=== PATIENT | female | born 1970 | race Caucasian/White ===

== ENCOUNTER 2019-01-22 12:04 | Inpatient (IN) | payer OTHER ==
[~2019-01-22] VITALS: Ht 162.6 cm; Wt 68.0 kg
[2019-01-22] MEDS ORDERED: KEPPRA1000 MG PO (12:14)
--- NOTE | 2019-01-22 15:16 | NUR ---
PT ARRIVES TO FLOOR ON GOURNEY BUT AMBULATES FROM GOURNEY TO HOSPITAL BED WITH STEADY GAIT AND DENIES DIZZINESS. ROOM AIR SAT 88% SO PT WAS PLACED ON 2LPNC AN DIS NOW SATTING IN MID 90'S. ASSESSMENT COMPLETED AND CALL LIGHT IN REACH. PT PROVIDED WITH MENUE SHE REPORTS NOT HAVING ANYTHING TO EAT IN 3 DAYS. CALL LIGHT AND H20 IN REACH AND PT ON PHONE ORDERING DINNER.
--- NOTE | 2019-01-22 16:35 | NUR ---
Medications reconciled per patient intake interview. Per patient, Keppra is the only medication that she takes
--- NOTE | 2019-01-22 17:53 | NUR ---
PATIENT IN BED WATCHING TV. VITAL SIGNS AND I&O DONE. WARM BLANKETS PROVIDED. PATIENT COMPLAINS ABOUT HEARTBURN. RN NOTIFIED. CALL LIGHT WITHIN REACH. NO OTHER NEEDS AT THIS TIME
--- NOTE | 2019-01-22 18:35 | NUR ---
PT REPORTS 7/10 RIB AN DTORSOE PAIN THAT IS INCREASED TO 9/10 WITH COUGHING. PT HEARD COUGHING INTERMITTANTLY. PT REFUSES PRN PO TYLENOL STATES "I CAN'T HAVE THAT D/T TO MY LIVER CIRHOSIS ANYWAYS AND IT WOULDN'T TOUCH THIS PAIN. DR RODRIGUEZ NOTIFIED OF PT'S S/SX'S.
--- NOTE | 2019-01-22 19:12 | NUR ---
RECEIVED REPORT FROM CHRISTINE MEHTA. pt ALERT AND AWAKE. REQUESTED KEPPRA EARLY THIS IS THE NORMAL TIME SHE TAKES IT. OXY ADMINISTERED BY CHRISTINE MEHTA. CALL LIGHT WITHIN REACH. WHITEBOARD UPDATED.
--- NOTE | 2019-01-22 21:00 | NUR ---
PT CALLED TO USE THE RESTROOM, SHE AMBULATED SBA. SHE IS BACK IN BED AND DENIES FURTHER NEEDS. CALL LIGHT IS CLOSE.
--- NOTE | 2019-01-23 00:19 | NUR ---
pt AWAKE, COUGHING. CALL LIGHT WITHIN REACH.
--- NOTE | 2019-01-23 03:28 | NUR ---
ASSESSMENT DONE. TEMPERATURE HIGH, PRN TYLENOL ADMINISTERED WITH OTHER PRN MEDS (SEE MAR). pt COUGHING. ON 2 L TO MAINTAIN SAT >90. ENCOURAGED TO USE CPT. NO REQUESTS AT THIS TIME. CALL LIGHT WITHIN REACH.
--- NOTE | 2019-01-23 06:40 | NUR ---
VS AND I&O'S ENTERED. PT DENIES NEEDS AT THIS TIME. CALL LIGHT IS WITHIN REACH.
--- NOTE | 2019-01-23 07:32 | NUR ---
pt AWAKE MOST OF NIGHT. NON PRODUCTIVE COUGH. PAIN MEDICATION AND PRN COUGH MEDS GIVEN. VOIDING QS. SBA. IV SL. TOLERATING REGULAR DIET. COARSE LUNG SOUNDS. 2 L O2 TO MAINTAIN SATS. USES CALL LIGHT APPROPRIATELY.
--- NOTE | 2019-01-23 09:29 | NUR ---
PT RESTING IN SEMIFOWLERS POSTION IN BED TALKING ON CELL PHONE AND WATCHING TV. PT REPORTS ELEVATED PAIN LEVEL WITH COUGHING. PT REQUESTED AND RECEIVED PRN COUGH SYRUP AND PRN PO OPIOD. ASSESSMENT COMPLETED AND CALL LIGHT AND H20 IN REACH. NO FURTHER NEEDS/CONCERNS VOICED.
--- NOTE | 2019-01-23 11:41 | NUR ---
NASAL SWAB SPECIMEN OBTAINED AND SENT TO LAB. PT TOLERATED WELL. PT SITTING UP IN BED, RT IN TO APPLY VAPOTHERM AN DPO K+ ADMINISTERED WITH WILIAN AND JEEBEN. CALL LIGHT AND H20 IN REACH. PT WAS EDUCATED ON PROPER TECHNIQUE FOR CLEAN CATCH URINE SAMPLE AND VERBALIZED UNDERSTANDING AND AGREES TO USE CALL LIGHT ONCE ABLE PT PRODUCE URINE SAMPLE. PT DENIES FURTHER NEEDS/CONCERNS.
--- NOTE | 2019-01-23 14:06 | NUR ---
PT SITTING UP IN BED, PT REPORTS 6 TO 8/10 PAIN WITH COUGHING. PRN PO OXYCODONE, TESSELON PEARLS, COUGH SYRUP WITH CODEIN AND COUGH LOZENGE ADMINISTERED. PT DENIES NEED FOR NASAL SPRAY STATES "I ADJUSTED THE NASAL CANULLA AND NOW IT DOESNT FEEL STUFFY AT ALL". ASSESSMENT COMPLETED. CALL LIGHT AND H20 IN REACH. FAMILY AT BEDSIDE NO NEEDS VOICED.
--- NOTE | 2019-01-23 17:34 | NUR ---
Pt reports increased pain with coughing, per pt request prn opiod, cough syrup and cough lozenge was administered. Call light and h20 in reach. Respirations remain even and unlabored on vapotherm per rt. Pt denies sob and recently received breathing tx from RT -See EMAR.
--- NOTE | 2019-01-23 19:10 | NUR ---
SHIFT REPORT RECEIVED FROM [facility] CHRISTINE MEHTA. PT IN BED AWAKE, RR WNL. PT ON VAPOFIRM O2 THERAPY. PT DENIES SOB, COUGHING NOTED. PT REPORTS HEARTBURN, WILL GIVE PRN MAALOX WITH EVENING MEDS. FRESH WATER AT BEDSIDE. NO FURTHER NEEDS. CALL LIGHT IN REACH.
--- NOTE | 2019-01-23 20:18 | NUR ---
ASSESSMENT COMPLETE, MEDICATIONS GIVEN (SEE EMAR). PRN MAALOX, ROBUTTUSSIN, AND THROAT LOZENGE GIVEN PER PT REQUEST. PT A/OX4, RATES PAIN 4/10 WHEN NOT COUGHING. ICE PACK PROVIDED TO LEFT HIP/BACK AREA R/T PAIN W/ COUGH. PT UP SBA TO VOID, NOW RESTING IN BED, VAPO FIRM IN PLACE. VS COLLECTED BY ABEL KUMAR. PT DENIES FURHER NEEDS, CALL LIGHT IN REACH.
--- NOTE | 2019-01-23 21:47 | NUR ---
VS and I&Os were complete. patient requested ice water and a box of klenex.
--- NOTE | 2019-01-23 23:34 | NUR ---
PT RESTING IN BED, HOB BED ELEVATED. NO COUGHING AT THIS TIME. EYES CLOSED, RR WNL, O2 VAPOTHERM IN PLACE. CALL LIGHT IN REACH.
--- NOTE | 2019-01-23 23:51 | NUR ---
coughing heard from nursing station, this rn in room to assess patient. prn benzonatate and 1 oxycodone administered for cough and pain. [facility]. no further needs, call light in reach.
--- NOTE | 2019-01-24 01:52 | NUR ---
PT AWAKE, DENIES NEEDS. RR WNL, VASOTHERM IN PLACE WITH O2 THERAPY. CALL LIGHT IN REACH.
--- NOTE | 2019-01-24 02:31 | NUR ---
ASSESSMENT COMPLETE, NO NEW CONCERNS. PT IN BATHROOM TO VOID. PT ON VAPOTHERM, PRN ROBUTTUSIN ADMINISTERED FOR COUCH PER PT REQUEST. FRESH WATER AT BEDSIDE, PT DENIES ADDITIONAL NEEDS. CALL LIGHT IN REACH.
--- NOTE | 2019-01-24 02:42 | NUR ---
HOT TEA PROVIDED FOR COUGH, PT DENIES FURTHER NEEDS. CALL LIGHT IN REACH.
--- NOTE | 2019-01-24 05:50 | NUR ---
VS AND I&O'S RECORDED. BP RESULT OF 88/45, MAP 55, HR 71. EQUIPMENT MAINTENANCE SUPERINTENDENT AWARE. THIS RN AND EQUIPMENT MAINTENANCE SUPERINTENDENT REVIEW PT'S VITAL SIGNS WHILE HERE AT HOSPITAL. SBP IN 80'S TO LOW 100'S. PER DR RODRIGUEZ'S PROGRESS NOTE, IT IS NORMAL FOR PT'S SBP TO RUN IN UPPER 80'S. EQUIPMENT MAINTENANCE SUPERINTENDENT AGREES THAT IT IS UNNECESSARY TO CALL MD THE BP RESULT IS NORMAL FOR PT.
--- NOTE | 2019-01-24 06:40 | NUR ---
PT HAD AN OKAY NIGHT. A/OX4, PAIN CONTROLLED WITH PRN PAIN MEDICAITONS RELATED TO COUGH. PRN COUGH MEDICATIONS. PT ON VAPOTHERM FOR O2, SCHEDULED AND PRN BREATHING TREATMENTS. PT SBA W/ AMBULATION. REGULAR DIET, BOWEL TONES ACTIVE. BMX1-2 THIS SHIFT. PT VOIDING QS. PT SALINE LOCKED, IV SITE WNL. MORNING SBP IN 80'S, PER MD PROGRESS NOTE PT REPORTS NORMAL FOR SBP TO BE IN 80'S. PT USES CALL LIGHT APPROPERAITELY.
--- NOTE | 2019-01-24 07:15 | NUR ---
dr de aware of pt's 0600 bp of 88/45. pt nonsymptomatic. no new orders.
--- NOTE | 2019-01-24 07:39 | NUR ---
PT REPOTED 4/10 PAIN AT REST, 10/10 PAIN TO TORSO, HIPS, BACK WITH COUGH. GAVE OXYCODONE 5 MG PO PRN.
--- NOTE | 2019-01-24 07:45 | NUR ---
PT COUGHING REPEATEDLY. GAVE ROBAFEN DM PRN.
--- NOTE | 2019-01-24 08:19 | NUR ---
PATIENT SITTING UP ON SIDE OF BED EATING BREAKFAST. CALL LIGHT IN REACH. NO FURTHER NEEDS AT THIS TIME.
--- NOTE | 2019-01-24 09:38 | NUR ---
PT SITTING UP IN BED. REPORTS THAT HER COUGH IS IMPROVED COMPARED WITH YESTERDAY. STILL HAS HARSH HACKING COUGH. REPORTS PAIN IMPROVED, RATED PAIN TO TORSO, JOINTS NOW 4/10, REPORTS THIS IS TOLERABLE.
--- NOTE | 2019-01-24 10:19 | NUR ---
PATIENT IN BED TALKING WITH VISITOR. FRESH WATER GIVEN. CALL LIGHT IN REACH. NO FURTHER NEEDS AT THIS TIME.
--- NOTE | 2019-01-24 10:39 | NUR ---
PT IS EXPECTING TO RETURN HOME UPON DC.
--- NOTE | 2019-01-24 11:45 | NUR ---
PT REQUESTED COUGH SYRUP, GAVE GUAFENASSIN WITH CODINE 5 ML. PT REMAINS ON 15L AT 40% FIO2 VIA VAPOTHERM. CONTINUES TO HAVE HARSH NONPRODUCTIVE COUGH. PERSONAL SUPPLIES AND CALL LIGHT IN REACH.
--- NOTE | 2019-01-24 13:06 | NUR ---
PT C/O 06/25 PAIN TO TORSO AND BACK RELATED TO CONTINUED COUGHING. GAVE OXYCODONE 10 MG PO PRN. PT ALSO PROVIDED WITH FRESH HOT TEA WITH HONEY IN IT PER PT REQUEST. PERSONAL SUPPLIES AND CALL LIGHT IN REACH.
--- NOTE | 2019-01-24 13:35 | NUR ---
CHRISTINE THACKER STATED THAT PT PREFERRED TO NOT HAVE ANY VISITORS TODAY, WILL CONTINUE TO FOLLOW NEEDED
--- NOTE | 2019-01-24 13:54 | NUR ---
PATIENT SITTING UP IN BED WATCHING TV. FRESH WATER AND TEA GIVEN. CALL LIGHT IN REACH. NO FURTHER NEEDS AT THIS TIME.
--- NOTE | 2019-01-24 15:22 | NUR ---
PT REPORTED THAT HER PAIN LEVEL IS NOW 2/10, GENERALIZED. REQUESTED COUGH SYRUP, AND WAS GIVEN ROBITUSSIN DM 10 ML PRN COUGH. PT CONTINUES TO HAVE A HARSH CONSISTANT COUGH, NONPRODUCTIVE AT THIS TIME. REMAINS ON VAPOTHERAM, 15L AT 40% FIO2. PT TO BATHROOM, VOIDED 650 ML URINE IN HAT, THEN BACK TO BED. PERSONAL SUPPLIES AND CALL LIGHT IN REACH.
--- NOTE | 2019-01-24 16:22 | NUR ---
NOTIFIED DR. HELTON VIA TELEPHONE THAT PT HAD A LOW BP 84/53, AND IS ASYMPTOMATIC. NO NEW ORDERS AT THIS TIME.
--- NOTE | 2019-01-24 17:07 | NUR ---
PT C/O 06/25 PAIN TO BACK, ABDOMINAL MUSCLES, RIBS FROM COUGH. GAVE OXYCODONE 5 MG PO PRN. PT IN BED, HOB ELEVATED.
--- NOTE | 2019-01-24 18:02 | NUR ---
PT C/O COUGH, REQUESTED COUGH SYRUP. GAVE GUAFENASIN WITH CODINE 5 ML PRN.
--- NOTE | 2019-01-24 18:12 | NUR ---
PATIENT SITTING UP IN BED WATCHING TV. CALL LIGHT IN REACH. NO FURTHER NEEDS AT THIS TIME.
--- NOTE | 2019-01-24 18:39 | NUR ---
PT ON VAPOTHERM, 15L AT 40% FIO2 TO MAINTAIN OXYGEN SATURATION LEVEL AT OR GREATER THAN 90%. LUNG SOUNDS COARSE, WITH WHEEZES, DIMINISHED IN BASES. PT HAS A HARSH NONPRODUCTIVE COUGH, WITH SEVERE COUGHING EPISODES. TOOK PRN GUAFENASIN WITH CODINE AND PRN ROBITUSSIN DM THROUGHOUT SHIFT ORDERED, ALTERNATING. BP LOW THIS SHIFT, 84/53, 90/53. ORTHOSTATIC VS OBTAINED, ASYMPTOMATIC, NO GREAT CHANGES. DR. HELTON AWARE. APETITE POOR. ENCOURAGE PT TO DRINK ENSURE, PT DECLINED. PT C/O PAIN WITH AND FROM COUGHING GREAT 08/25, TOOK PRN OXYCODONE FOR THIS. REPORTED PAIN TO BACK AND ABDOMINAL MUSCLES, WELL INTERCOSTAL AREAS. REPORTED RELIEF WITH PRN OXYCODONE.
--- NOTE | 2019-01-24 19:08 | NUR ---
RECEIVED REPORT FROM CHRISTINE YANG. pt ALERT AND AWAKE. REQUESTED A WARM PACK FOR HER NECK (PROVIDED BY JOSÉ). NO OTHER REQUESTS AT THIS TIME. WHITEBOARD UPDATED. CALL LIGHT WITHIN REACH.
--- NOTE | 2019-01-24 19:10 | NUR ---
CHARGE NURSE REPORT RECEIVED FROM YAZMIN. PT IN ROOM, DENIES NEEDS.
--- NOTE | 2019-01-24 20:15 | NUR ---
ASSESSMENT AND MEDICATION DUE. ASSESSMENT DONE. pt TOLERATING VAPOTHERM. PROVIDED APPLESAUCE. MEDICATION GIVEN (SEE MAR). PAIN 2/10 WHEN RESTING, INCREASED WITH COUGHING. CALL LIGHT WITHIN REACH. NO FURTHER REQUESTS AT THIS TIME.
--- NOTE | 2019-01-24 21:56 | NUR ---
V/S AND I&O DONE AND RECORDED. ICE WATER REFILLED.
--- NOTE | 2019-01-24 21:56 | NUR ---
pt REQUESTED PRN MEDS, GIVEN (SEE MAR). CALL LIGHT WITHIN REACH. NO FURTHER REQUESTS AT THIS TIME.
--- NOTE | 2019-01-25 00:01 | NUR ---
ROUNDED ON pt. RESTING WITH EYES CLOSED. RESPIRATIONS REGULAR IN RATE AND RHYTHM. CALL LIGHT WITHIN REACH.
--- NOTE | 2019-01-25 00:54 | NUR ---
pt COUGHING. CALL LIGHT ON. PRN MEDICATIONS ADMINISTERED (SEE MAR). pt REPORTED "MY THROAT IS SWELLING AND I'M HAVING TROUBLE BREATHING". RT IN ROOM, pt REFUSED NEB TREATMENT "I NEED 30 MINUTES TO RECOVER BEFORE A NEB". UPON FURTHER QUESTIONING pt REPORTED THAT SWELLING WAS A "SCRATCHY THROAT" REQUESTED A POPSICLE AND ICE WATER. LUNG SOUNDS ASSESSED, AIR MOVEMENT HEARD. pt DOES NOT APPEAR TO BE IN RESPIRATORY DISTRESS. RESPIRATORY RATE 18. VAPO THERM IN PLACE. RT BACK TO ROOM TO GIVE NEB TX. pt ASKED FOR A NC INSTEAD OF THE VAPO THERM BECAUSE IT WAS UNCOMFORTABLE. RT AND THIS RN HAD DISCUSSION WITH pt. OFFERED TO DO A TRIAL ON A DIFFERENT OXYGEN DEVICE IF pt WOULD BE WILLING TO HAVE CPOX ON. pt REFUSED CPOX AND STATED "THE VAPO THERM IS JUST ANNOYING, I'LL DEAL WITH IT". NO FURTHER REQUESTS. CALL LIGHT WITHIN REACH.
--- NOTE | 2019-01-25 02:25 | NUR ---
ROUNDED ON pt. RESTING WITH EYES CLOSED, RESPIRATIONS REGULAR. CALL LIGHT WITHIN REACH.
--- NOTE | 2019-01-25 03:54 | NUR ---
pt COUGHING. PRN MEDICATION ADMINISTERED (SEE MAR). POPSICLE PROVIDED. NO FURTHER REQUESTS AT THIS TIME.
--- NOTE | 2019-01-25 05:02 | NUR ---
pt RESTED ON AND OFF DURING SHIFT. PRN MEDS GIVEN WHEN AVAILABLE. IV SL. TOLERATING REGULAR DIET, ENCOURAGED PO INTAKE. pt ON VAPOTHERM. SBA, INDEPENDENT IN ROOM. pt USES CALL LIGHT APPROPRIATELY.
--- NOTE | 2019-01-25 06:05 | NUR ---
PRN MEDS ADMINISTERED (SEE MAR). pt REPORTED "I FEEL BETTER". CALL LIGHT WITHIN REACH.
--- NOTE | 2019-01-25 07:12 | NUR ---
RECIEVED BEDSIDE REPORT FROM CHRISTINE LYON. PT SITTING UP IN BED, AWAKE, ALERT. PERSONAL SUPPLIES AND CALL LIGHT IN REACH. DENIED NEEDS.
--- NOTE | 2019-01-25 08:39 | NUR ---
PATIENT PUT ON 6LNC UPON RN REQUEST TO PREPARE FOR SHOWER. MONITORING O2 STATS.
--- NOTE | 2019-01-25 09:18 | NUR ---
PATIENT UP TO SHOWER AND BACK TO BED, IND. SHAWN CHAGNED. FRESH WATER GIVEN. CALL LIGHT IN REACH. NO FURTHER NEEDS AT THIS TIME.
--- NOTE | 2019-01-25 09:29 | NUR ---
PT SHOWERED WITH ASSIST FROM CONSTRUCTION PRODUCER. NOW BACK IN BED, HOB ELEVATED. PT TITRATED OFF VAPOTHERM, ONTO 3L O2 VIA NC, SAT 96-98%. STILL HAS HARSH HACKING COUGH. GAVE GUAFENASIN WITH CODINE 5 ML PRN COUGH. PT HAS PERSONAL SUPPLIES AND CALL LIGHT IN REACH.
--- NOTE | 2019-01-25 10:17 | NUR ---
PT SITTING UP IN BED. C/O PAIN TO TORSO, SIDES, BACK, HIPS, 04/25. GAVE OXYCODONE 5 MG PO PRN.
--- NOTE | 2019-01-25 11:19 | NUR ---
PT C/O SORE THROAT FROM COUGH. GAVE CEPACOL THROAT LOZENGE PRN. PT ON 3L O2, TITRATED DOWN TO 2L O2 VIA NC, OXYGEN SATURATION LEVEL 96%. PT SITTING UP IN BED. COUGHING, NONPRODUCTIVE HACKING COUGH.
--- NOTE | 2019-01-25 11:25 | NUR ---
PT C/O 7/10 PAIN TO SIDES, BACK, TORSO, HIPS FROM COUGH. GAVE OXYCODONE 5 MG PO PRN.
--- NOTE | 2019-01-25 13:23 | NUR ---
PT C/O PAIN TO RIGHT SIDE FROM COUGHING, GAVE PT ICE PACK PER REQUEST. PT ALSO REPORTED HEARTBURN, GAVE MALOX PRN.
--- NOTE | 2019-01-25 13:24 | NUR ---
DR. HELTON IN TO ROUND ON PT, DISCUSSED PLAN OF CARE. QUESTIONS ASKED AND ANSWERED. PT VERBALIZED UNDERSTANDING. PT CONTINUES TO HAVE A HARSH NONPRODUCTIVE COUGH. ON 1L O2 VIA NC, OXYGEN SATURATION LEVEL 96%.
--- NOTE | 2019-01-25 13:31 | NUR ---
GAVE PT ROBAFEN DM 10 ML PRN C/O COUGH.
--- NOTE | 2019-01-25 14:10 | NUR ---
PT IN BED, VISITING WITH FRIEND. DENIES NEEDS AT THIS TIME. ON 1L O2 VIA NC, OXYGEN SATURATION LEVEL 95%. PERSONAL SUPPLIES AND CALL LIGHT IN REACH.
--- NOTE | 2019-01-25 14:18 | NUR ---
PATIENT IN BED WATCHING TV. CALL LIGHT IN REACH. NO FURTHER NEEDS AT THIS TIME.
--- NOTE | 2019-01-25 15:21 | NUR ---
PT SITTING UP IN BED. ON 1L O2 VIA NC. OXYGEN SATURATION LEVEL 92%. COUGHING, HARSH HACKING, NONPRODUCTIVE COUGH.
--- NOTE | 2019-01-25 16:30 | NUR ---
RT KERA NOTIFIED THIS RN THAT PT'S OXYGEN SATURATION LEVEL WAS 97% ON 1L O2 VIA NC, SO TITRATED PT TO 0.5L O2 VIA NC. WILL MONITOR OXYGEN SATURATION.
--- NOTE | 2019-01-25 16:35 | NUR ---
PT REQUESTED COUGH MEDICATION, GAVE ROBITUSSIN AC 5 ML PRN. PT DENIED OTHER NEEDS AT THIS TIME. PERSONAL SUPPLIES AND CALL LIGHT IN REACH.
--- NOTE | 2019-01-25 17:35 | NUR ---
PT STILL HAS A HARSH HACKING, NONPRODUCTIVE COUGH. ON 0.5L O2 VIA NC, MAINTAINING OXYGEN SATURATION GREATER THAN 89%. STILL NEEDS SPUTUM SAMPLE, IF PT ABLE TO EXPECTORATE SPUTUM, AND PT IS AWARE OF THIS. PT HAS A POOR APETITE. REFUSED ENSURE DRINKS. C/O PAIN TO TORSO, BACK, HIPS, NECK R/T COUGHING. PT GIVEN PRN OXYCODONE FOR THIS. PT UP INDEPENDANTLY IN ROOM, STEADY ON FEET, HAS DENIED LIGHTHEADEDNESS OR DIZZINESS THROUGHOUT SHIFT. IV SL. WAS ON VAPOTHERM, 15L AT 40% FIO2 AT START OF SHIFT, BUT WAS ABLE TO TITRATE TO 0.5L VIA NC. LUNS COARSE THROUGHOUT. PT ALERT, ORIENTED X 4.
--- NOTE | 2019-01-25 18:25 | NUR ---
PATIENT UP TO BATHROOM AND BACK TO BED, IND. CALL LIGHT IN REACH. PATIENT ASKING FOR TRINIDAD RN NOTIFIED. NO FURTHER NEEDS AT THIS TIME.
--- NOTE | 2019-01-25 19:00 | NUR ---
SHIFT REPORT RECEIVED. PATIENT UP TO THE BATHROOM. REPORTS VIDAL PAGAN RN STATES SHE WILL PROVIDED THE AVAILABLE MAALOX PRIOR TO LEAVING.
--- NOTE | 2019-01-25 19:20 | NUR ---
CHARGE NURSE REPORT RECEIVED FROM TRESSA ARCE IN BED, WITH LIGHTS OFF. DENIES NEEDS.
--- NOTE | 2019-01-25 20:45 | NUR ---
PATIENT HAS ONGOING HARSH COUGH. PRN ROBITUSSIN W/ CODEINE PROVIDED. PATIENT REPORTS ONGOING NAUSEA, DENIES OFFERS FOR CRACKERS. RT IN ROOM FOR NEB TREATMENT.
--- NOTE | 2019-01-25 21:07 | NUR ---
V/S AND I&O DONE AND CHARTED. HOT PACK GIVEN PER PATIENT'S REQUEST.
--- NOTE | 2019-01-25 22:00 | NUR ---
PATIENT PROVIDED WITH PRN ROBITUSSIN AND PRN OXY PER ORDER. PATIENT HAS ONGOING COUGH WITH RIB PAIN 3/10. NONPRODUCTIVE. PATIENT ALSO HAS ONGOING HEARTBURN WITH MILD NAUSEA. PRN ZOFRAN PROVIDED. DISCUSSED CONCERNED WITH DR. HELTON, ONE TIME PEPCID ORDERED. PATIENT TOLERATING 0.5L NC. USING CPT AND IS APPROPRIATELY. LUNGS ARE CORASE THROUGHOUT. ABD SOFT, NONTENDER. CMS INTACT. NO OTHER CONCERNS AT THIS TIME. CALL LIGHT IN REACH.
--- NOTE | 2019-01-25 23:00 | NUR ---
PEPCID PROVIDED PER ORDER. IV SITE FLUSHED EASILY, WNL. PATIENT DENIES FURTHER NEEDS. CALL LIGHT IN REACH.
--- NOTE | 2019-01-26 01:23 | NUR ---
WENT IN TO GIVE APPLE JUICE. PATIENT STATED" I WONDER IF SHE (THE PRIMARY NURSE) CAME BACK AND GIVE MY PAIN MEDS". NOTIFIED PEDIATRIC IMMUNOLOGIST.
--- NOTE | 2019-01-26 02:56 | NUR ---
PATIENT ASKED POWER REGULATOR IF PAIN MEDICATION HAD BEEN GIVEN. WHEN THIS RN ENTERED THE ROOM TO TALK WITH THE PATIENT SHE APPEARED TO BE SLEEPING SOUNDLY AND DID NOT WAKE TO VOICE. RR 18. CALL LIGHT IN REACH. ALLOWED TO REST.
--- NOTE | 2019-01-26 04:45 | NUR ---
PATIENT HEARD COUGHING LOUDLY. PRN TESSLON PEARLS AND ROBITUSSIN PROVIDED. PATIENT REQUESTING PRN PXY, DISCUSSED PAIN MANAGEMENT WITH PATIENT AND CODIENE IN THE ROBITUSSIN. WILL CONTINUE TO MONITOR PRN MED NEEDS. PATIENT TOLERATING ROOM AIR. LUNGS ARE COARSE THROUGHOUT. ENCOURAGED IS & CPT USE. PATIENT ABLE TO PROVIDED SPUTUM SAMPLE.
--- NOTE | 2019-01-26 05:38 | NUR ---
PATIENT SLEPT ON AND OFF THROUGHOUT THE SHIFT. ONGOING HARSH COUGH. PATIENT ABLE TO PROVIDE SPUTUM SAMPLE THIS AM. PRN MEDS FOR COUGH AND RIB PAIN. PATIENT TOLERATING ROOM AIR. POOR APPETITE, BUT DRINKING ADEQUATE FLUIDS. PATIENT REPORTED HEARTBURN, RESOLVED THIS AM AFTER ONE TIME PEPCID AND PRN MAALOX. INDEPENDENT IN THE ROOM REGULAR DIET. SCHEDULED NEBS. REFUSING PULSE OX. VS STABLE.
--- NOTE | 2019-01-26 07:05 | NUR ---
Report received from CHRISTINE Cast. Pt sitting up in bed, requests ear don tea and oxycodone for rib pain worse with coughing. CHRISTINE Cast agrees to administer dose of pain medication. Call light and fresh ice water in reach.
--- NOTE | 2019-01-26 08:37 | NUR ---
PT SITTING UP IN FOWLERS POSITION IN BED, RESPIRATIONS EVEN AND UNLABORED. 02 SAT 96% ON ROOM AIR. ASSESSMENT COMPELTED AND AM MEDS ADMINISTERED. IV ABX NOW INFUSING. CALL LIGHT AND H20 IN REACH. RT IN TO SEE PATIENT AND SETS PT UP ON NEB TX. PT DENIES NEEDS/CONCERNS.
[2019-01-26] MEDS ORDERED: IPRAT-ALBUT 0.5-3 ML INH (09:36)
[2019-01-26] MEDS ORDERED: ALBUTEROL2.5 MG/3 M INH (09:36)
[2019-01-26] MEDS ORDERED: AMOXICILLIN875 MG PO (09:45)
[2019-01-26] MEDS ORDERED: OXYCODONE HCL5 MG PO (09:45)
[2019-01-26] MEDS ORDERED: BENZONATATE100 MG PO (09:46)
[2019-01-26] MEDS ORDERED: GUAIFENESIN-CODE5 ML PO (09:47)
--- NOTE | 2019-01-26 11:05 | NUR ---
PT REPORTS INCREASED COUGH. PT REQUESTS AND RECEIVED PRN PO COUGH MEDICATION. rr 16 even and unlabored with an intermittant unproductive cough. pt denies sob. call light and h20 in reach.
== END 2019-01-26 11:30 | disposition home or self-care (01) | DRG 177 ==
LOC: ED 12:04 → MS 14:19
PROVIDERS: ADMIT Student in an Organized Health Care Education/Training Program
DX: A48.1 Legionnaires' disease (principal); J96.01 Acute respiratory failure with hypoxia; F17.210 Nicotine dependence, cigarettes, uncomplicated; G40.909 Epilepsy, unspecified, not intractable, without status epilepticus; I95.9 Hypotension, unspecified; Z66 Do not resuscitate; Z79.899 Other long term (current) drug therapy; Z87.19 Personal history of other diseases of the digestive system
CPT/HCPCS: 36415; 71045; 80048; 80053; 83605; 83735; 83880; 85025; 85610; 86635; 87449; 87502; 94640; 94667; 94668; 94799; 96361; 96365; 96375; 99284-25; 99406; J0456; J0696; J1885; J2405; J7030; J7050; J7060; J7120

== ENCOUNTER 2021-04-29 01:00 | Emergency (ER) | payer OTHER ==
[~2021-04-29] VITALS: Ht 162.6 cm; Wt 68.0 kg
[~2021-04-29 01:00] MED LIST: ALBUTEROL2.5 MG/3 M INH; AMOXICILLIN875 MG PO; BENZONATATE100 MG PO; GUAIFENESIN-CODE5 ML PO; IPRAT-ALBUT 0.5-3 ML INH; KEPPRA1000 MG PO; OXYCODONE HCL5 MG PO
[2021-04-29] MEDS ORDERED: ULTRAM50 MG PO (02:01)
== END 2021-04-29 02:28 | disposition home or self-care (01) ==
LOC: ED 01:00
DX: N13.2 Hydronephrosis with renal and ureteral calculous obstruction (principal); F17.200 Nicotine dependence, unspecified, uncomplicated; Z79.899 Other long term (current) drug therapy
CPT/HCPCS: 74176; 81001; 99284-25

== ENCOUNTER 2024-07-06 07:19 | Inpatient (IN) | payer OTHER ==
[~2024-07-06] VITALS: Ht 162.6 cm; Wt 55.9 kg
[2024-07-06] VITALS (11 sets, daily range): BP systolic 112–129; BP diastolic 68–80
[~2024-07-06 07:19] MED LIST changes: +B-1100 MG PO; +CHLORDIAZEPOXID25 MG PO; +FOLIC ACID1 MG PO; +ULTRAM50 MG PO
[2024-07-06] MEDS ORDERED: GABAPENTIN300 MG PO (07:26)
[2024-07-06] MEDS ORDERED: OMEPRAZOLE20 MG PO (07:26)
[2024-07-06] MEDS ORDERED: SODIUM CHLORIDE 0.9% 1,000 ML IV ONE (07:45)
[2024-07-06] MEDS ORDERED: ondansetron HCL 4 MG/2 ML VIAL IV ONE (07:45)
[2024-07-06 08:02] LABS: BASOPHILS 0.4 % (0-2); EOSINOPHILS 0.1 % (0-6); HEMATOCRIT 40.5 % (35.0-50.0); HEMOGLOBIN 13.6 g/dL (12.0-18.0); LYMPHOCYTES 6.6 % (24-44); MCH 37.6 (27-36); MCHC 33.5 g/dl (30-36); MCV 112.4 fl (81-99); NEUTROPHILS 85.9 % (39-80); RDW 14.9 (10.5-15.0)
[2024-07-06 08:14] LABS: ALBUMIN 4.1 g/dL (3.4-5.0); ALBUMIN/GLOBULIN RATIO 1.05 (1.1-2.4); ALKALINE PHOSPHATASE 167 U/L (46-116); ALT (SGPT) 47 U/L (14-59); ANION GAP 33.9 (7-21); AST (SGOT) 165 U/L (15-37); BILIRUBIN, TOTAL 7.1 ng/dL (0.2-1.0); BUN/CREATININE RATIO 5.43 (6.0-28.6); CALCIUM 9.3 mg/dL (8.5-10.1); CARBON DIOXIDE 13 mmol/L (21-32); CHLORIDE 92 mmol/L (98-107); CREATININE, SERUM 0.92 mg/dL (0.55-1.02); GLOMERULAR FILTRATION RATE,EST 74 mL/min (>60); POTASSIUM 2.9 mmol/L (3.5-5.1); UREA NITROGEN 5 mg/dL (7-18)
[2024-07-06 08:21] LABS: SMEAR REVIEW BLOOD SEE COMMENTS
[2024-07-06 08:22] LABS: PLATELET COUNT 48 K/uL (140-440)
[2024-07-06] MEDS ORDERED: MAGNESIUM SULFATE 2 GM/50 ML BAG IV ONE (08:45)
[2024-07-06] MEDS ORDERED: MULTIVITAMINS 10 ML,FOLIC ACID 1 MG,THIAMINE HCL 100 MG in SODIUM CHLORIDE 0.9% 1,000 ML IV SCH (08:45)
[2024-07-06] MEDS ORDERED: PANTOPRAZOLE SODIUM 40 MG/10 ML VIAL IV ONE (09:15)
[2024-07-06 11:34] LABS: INR 1.5 (0.80-1.30); PROTIME 17.3 Sec (11.2-14.2)
[2024-07-06 11:40] LABS: ALBUMIN 3.5 g/dL (3.4-5.0); ALBUMIN/GLOBULIN RATIO 1.03 (1.1-2.4); ANION GAP 30.1 (7-21); BILIRUBIN, TOTAL 6.9 ng/dL (0.2-1.0); BUN/CREATININE RATIO 7.31 (6.0-28.6); CALCIUM 8.3 mg/dL (8.5-10.1); CREATININE, SERUM 0.82 mg/dL (0.55-1.02); POTASSIUM 3.1 mmol/L (3.5-5.1); PROTEIN, TOTAL 6.9 g/dL (6.4-8.2)
[2024-07-06 12:09] LABS: BILIRUBIN, URINE POSITIVE (negative); BLOOD/HGB, URINE NEGATIVE (Negative); KETONE, URINE >=80 (Negative); LEUK ESTERASE, URINE SMALL (negative); NITRITE, URINE NEGATIVE (negative)
[2024-07-06 12:18] LABS: BACTERIA, URINE 1+ /hpf (negative); CASTS, URINE HYALINE 1+ \\lpf; CRYSTALS, URINE NONE SEEN (0-1+); EPITHELIAL CELLS, URINE SQUAMOUS 2+ /lpf (0-1+); WHITE BLOOD CELLS, URINE 21-40 /HPF (0-5)
[2024-07-06 12:19] LABS: COLLECTION TYPE, URINE CLEAN CATCH; REFLEX CULTURE, URINE No (No)
[2024-07-06] MEDS ORDERED: METOPROLOL TARTRATE 5 MG/5 ML VIAL IV ONE (12:30)
[2024-07-06] MEDS ORDERED: levETIRAcetam 500 MG/5 ML VIAL IV ONE (12:45)
[2024-07-06 13:04] LABS: AMPHETAMINES, URINE NEGATIVE (NEGATIVE); BARBITURATES, URINE NEGATIVE (NEGATIVE); BENZODIAZEPINE, URINE NEGATIVE (NEGATIVE); BUPRENORPHINE, URINE NEGATIVE (NEGATIVE); CANNABINOID, URINE NEGATIVE (NEGATIVE); COCAINE, URINE NEGATIVE (NEGATIVE); ECSTASY, URINE NEGATIVE (NEGATIVE); FENTANYL, URINE NEGATIVE (NEGATIVE); METHADONE, URINE NEGATIVE (NEGATIVE); OPIATES, URINE NEGATIVE (NEGATIVE); OXYCODONE, URINE NEGATIVE (NEGATIVE); PHENCYCLIDINE, URINE NEGATIVE (NEGATIVE)
[2024-07-06] MEDS ORDERED: GABAPENTIN 300 MG CAP PO SCH (13:12)
[2024-07-06] MEDS ORDERED: LORazepam 2 MG/ML VIAL IV/IM PRN (13:15)
[2024-07-06] MEDS ORDERED: LEVETIRACETAM750 MG PO (13:57)
[2024-07-06] MEDS ORDERED: POTASSIUM CHLORIDE 10 MEQ/100 ML BAG IV ONE (15:15)
[2024-07-06] MEDS ORDERED: OXYCODONE HCL 5 MG TAB PO PRN (15:15)
[2024-07-06] MEDS ORDERED: LACTATED RINGER'S 1,000 ML IV SCH (15:15)
[2024-07-06] MEDS ORDERED: POTASSIUM CHLORIDE 40 MEQ,LIDOCAINE HCL 1% 40 MG in DEXTROSE 5% 250 ML IV ONE (15:30)
[2024-07-06] MEDS ORDERED: ondansetron HCL 4 MG/2 ML VIAL IV PRN (15:45)
[2024-07-06] MEDS ORDERED: ondansetron HCL 4 MG/2 ML VIAL IV SCH (20:00)
[2024-07-06] MEDS ORDERED: MORPHINE SULFATE 4 MG/ML VIAL IV PRN (20:30)
[2024-07-06] MEDS ORDERED: levETIRAcetam 500 MG TAB PO SCH ×2 (21:00)
[2024-07-07] VITALS (20 sets, daily range): BP systolic 94–120; BP diastolic 40–82
[2024-07-07 05:31] LABS: BASOPHILS 0.6 % (0-2); EOSINOPHILS 0.5 % (0-6); HEMOGLOBIN 10.6 g/dL (12.0-18.0); LYMPHOCYTES 13.3 % (24-44); MCH 37.9 (27-36); MCV 111.4 fl (81-99); MONOCYTES 10.6 % (0-12); RBC 2.79 M/ul (4.3-5.7); RDW 14.6 (10.5-15.0)
[2024-07-07 05:44] LABS: ALBUMIN 3.2 g/dL (3.4-5.0); ANION GAP 17.7 (7-21); BILIRUBIN, TOTAL 4.3 ng/dL (0.2-1.0); BUN/CREATININE RATIO 5.2 (6.0-28.6); CALCIUM 8.6 mg/dL (8.5-10.1); CREATININE, SERUM 0.96 mg/dL (0.55-1.02); POTASSIUM 2.7 mmol/L (3.5-5.1); PROTEIN, TOTAL 6.4 g/dL (6.4-8.2)
[2024-07-07 05:51] LABS: PLATELET COUNT 34 K/uL (140-440)
[2024-07-07] MEDS ORDERED: POTASSIUM CHLORIDE 10 MEQ TABCR PO STA (06:01)
[2024-07-07] MEDS ORDERED: POTASSIUM CHLORIDE 10 MEQ/100 ML BAG IV SCH (06:15)
[2024-07-07] MEDS ORDERED: THIAMINE HCL 100 MG TAB PO SCH (08:00)
[2024-07-07] MEDS ORDERED: THIAMINE HCL 100 MG in SODIUM CHLORIDE 0.9% 100 ML IV SCH (09:00)
[2024-07-07] MEDS ORDERED: MAGNESIUM SULFATE 2 GM/50 ML BAG IV ONE (11:15)
[2024-07-07] MEDS ORDERED: POLYETHYLENE GLYCOL 3350 1 PACKET PO ONE (11:15)
[2024-07-07] MEDS ORDERED: PHARMACY RENAL DOSE ADJUSTMENT 1 DOSE MISC PO SCH (12:00)
[2024-07-07] MEDS ORDERED: DIATRIZOATE MEGLU/DIATRIZO SOD 15 ML BTL PO SCH (15:15)
[2024-07-07] MEDS ORDERED: LACTATED RINGER'S 1,000 ML IV SCH (15:15)
[2024-07-07 15:36] LABS: ANION GAP 16.3 (7-21); BUN/CREATININE RATIO 5.31 (6.0-28.6); CALCIUM 8.8 mg/dL (8.5-10.1); CREATININE, SERUM 0.94 mg/dL (0.55-1.02); MAGNESIUM 2.3 mg/dL (1.8-2.4); POTASSIUM 3.3 mmol/L (3.5-5.1)
[2024-07-07] MEDS ORDERED: POTASSIUM CHLORIDE 10 MEQ/100 ML BAG IV ONE (16:15)
[2024-07-07] MEDS ORDERED: POTASSIUM CHLORIDE 10 MEQ TABCR PO ONE (16:15)
[2024-07-07] MEDS ORDERED: POTASSIUM CHLORIDE 40 MEQ,LIDOCAINE HCL 1% 40 MG in DEXTROSE 5% 250 ML IV ONE (16:30)
[2024-07-07] MEDS ORDERED: bisacodyL 10 MG SUPP PR ONE (21:15)
[2024-07-08] VITALS (13 sets, daily range): BP systolic 88–108; BP diastolic 59–85
[2024-07-08 05:38] LABS: BASOPHILS 0.5 % (0-2); EOSINOPHILS 0.5 % (0-6); HEMATOCRIT 32.8 % (35.0-50.0); HEMOGLOBIN 11.3 g/dL (12.0-18.0); LYMPHOCYTES 12.5 % (24-44); MCH 38.4 (27-36); MCHC 34.6 g/dl (30-36); MONOCYTES 7.6 % (0-12); NEUTROPHILS 78.9 % (39-80); RBC 2.95 M/ul (4.3-5.7); RDW 14.6 (10.5-15.0)
[2024-07-08 06:01] LABS: ALBUMIN 3.2 g/dL (3.4-5.0); ALBUMIN/GLOBULIN RATIO 0.97 (1.1-2.4); ANION GAP 13.5 (7-21); BILIRUBIN, TOTAL 6.1 ng/dL (0.2-1.0); BUN/CREATININE RATIO 4.47 (6.0-28.6); CALCIUM 9.3 mg/dL (8.5-10.1); CREATININE, SERUM 0.67 mg/dL (0.55-1.02); MAGNESIUM 1.8 mg/dL (1.8-2.4); POTASSIUM 4.5 mmol/L (3.5-5.1); PROTEIN, TOTAL 6.5 g/dL (6.4-8.2)
[2024-07-08 06:19] LABS: PLATELET COUNT 35 K/uL (140-440)
[2024-07-08] MEDS ORDERED: KETOROLAC TROMETHAMINE 15 MG/ML VIAL IV PRN (14:00)
--- NOTE | 2024-07-08 19:49 | EKG ---
[facility] [address] [facility] [place] [address] Signed Sinus tachycardia T wave abnormality, consider anterior ischemia Abnormal ECG No previous ECGs available Confirmed by Darshan Lyle MD ([id number]) on 07/08/2024 7:49:24 PM Electronically Signed By: DARSHAN LYLE MD 07/08/241948 PATIENT NAME: BRIANA CAMPA Electrocardiogram DATE OF : 68 PHYSICIAN: DARSHAN LYLE MD REPORT #: [id number] REPORT IS CONFIDENTIAL AND NOT TO BE RELEASED WITHOUT AUTHORIZATION
[2024-07-08] MEDS ORDERED: LACTATED RINGER'S 1,000 ML IV SCH (20:00)
[2024-07-09] VITALS (17 sets, daily range): BP systolic 88–125; BP diastolic 55–75
[2024-07-09 05:43] LABS: BASOPHILS 0.4 % (0-2); HEMATOCRIT 30.1 % (35.0-50.0); HEMOGLOBIN 10.4 g/dL (12.0-18.0); LYMPHOCYTES 13.1 % (24-44); MCH 38.3 (27-36); MCHC 34.5 g/dl (30-36); MCV 111.1 fl (81-99); MONOCYTES 14.3 % (0-12); NEUTROPHILS 71.2 % (39-80); PLATELET COUNT 51 K/uL (140-440); RBC 2.71 M/ul (4.3-5.7); RDW 14.9 (10.5-15.0)
[2024-07-09 05:49] LABS: ALBUMIN 2.9 g/dL (3.4-5.0); ALBUMIN/GLOBULIN RATIO 0.88 (1.1-2.4); ANION GAP 12.8 (7-21); BILIRUBIN, TOTAL 6.2 ng/dL (0.2-1.0); BUN/CREATININE RATIO 4.47 (6.0-28.6); CALCIUM 8.8 mg/dL (8.5-10.1); CREATININE, SERUM 0.67 mg/dL (0.55-1.02); MAGNESIUM 1.5 mg/dL (1.8-2.4); POTASSIUM 3.8 mmol/L (3.5-5.1); PROTEIN, TOTAL 6.2 g/dL (6.4-8.2)
[2024-07-09] MEDS ORDERED: MAGNESIUM SULFATE 2 GM/50 ML BAG IV ONE (06:15)
[2024-07-09] MEDS ORDERED: FUROSEMIDE 40 MG TAB PO SCH (11:35)
[2024-07-09] MEDS ORDERED: MORPHINE SULFATE 4 MG/ML VIAL IV PRN (11:45)
[2024-07-09] MEDS ORDERED: LACTULOSE 20 GM/30 ML CUP PO ONE (13:30)
[2024-07-09] MEDS ORDERED: HYDROmorphone HCL 2 MG TAB PO PRN ×2 (15:45→22:15)
[2024-07-10] VITALS (10 sets, daily range): BP systolic 100–109; BP diastolic 46–71
[2024-07-10 05:41] LABS: HEMATOCRIT 32.2 % (35.0-50.0); MCH 38.2 (27-36); MCV 112.4 fl (81-99); PLATELET COUNT 84 K/uL (140-440); RBC 2.87 M/ul (4.3-5.7); RDW 15.2 (10.5-15.0)
[2024-07-10 05:57] LABS: ALBUMIN 2.9 g/dL (3.4-5.0); ALBUMIN/GLOBULIN RATIO 0.81 (1.1-2.4); ANION GAP 11.4 (7-21); BILIRUBIN, TOTAL 4.7 ng/dL (0.2-1.0); BUN/CREATININE RATIO 5.08 (6.0-28.6); CALCIUM 8.9 mg/dL (8.5-10.1); CREATININE, SERUM 0.59 mg/dL (0.55-1.02); MAGNESIUM 1.7 mg/dL (1.8-2.4); POTASSIUM 3.4 mmol/L (3.5-5.1); PROTEIN, TOTAL 6.5 g/dL (6.4-8.2)
[2024-07-10 06:07] LABS: EOSINOPHILS, MANUAL DIFF 1; LYMPHOCYTES, MANUAL DIFF 10; MONOCYTES, MANUAL DIFF 15; NEUTROPHILS, MANUAL DIFF 74
[2024-07-10] MEDS ORDERED: LACTULOSE 20 GM/30 ML CUP PO ONE (09:00)
[2024-07-10] MEDS ORDERED: MINERAL OIL 133 ML BTL PR ONE (09:45)
[2024-07-10] MEDS ORDERED: Methylnaltrexone Bromide 12 MG/0.6 ML VIAL SUB-Q ONE (10:30)
[2024-07-10] MEDS ORDERED: PANTOPRAZOLE SODIUM 40 MG/10 ML VIAL IV SCH (16:19)
[2024-07-10] MEDS ORDERED: SODIUM CHLORIDE 0.9% 1,000 ML IV SCH (16:30)
[2024-07-10] MEDS ORDERED: CALCIUM CARBONATE 500 MG CHEW PO SCH (17:00)
[2024-07-10] MEDS ORDERED: OXYCODONE HCL 5 MG TAB PO PRN (19:45)
[2024-07-10 20:35] LABS: ANION GAP 10.1 (7-21); BUN/CREATININE RATIO 6.45 (6.0-28.6); CALCIUM 8.4 mg/dL (8.5-10.1); CREATININE, SERUM 0.62 mg/dL (0.55-1.02); POTASSIUM 3.1 mmol/L (3.5-5.1)
[2024-07-10] MEDS ORDERED: SENNOSIDES/DOCUSATE 1 EA TAB PO SCH (21:00)
[2024-07-10] MEDS ORDERED: POTASSIUM CHLORIDE 40 MEQ,LIDOCAINE HCL 1% 40 MG in DEXTROSE 5% 250 ML IV ONE (21:15)
[2024-07-10] MEDS ORDERED: POTASSIUM CHLORIDE 10 MEQ/100 ML BAG IV SCH (21:30)
[2024-07-11] VITALS (10 sets, daily range): BP systolic 97–108; BP diastolic 55–70
[2024-07-11 05:33] LABS: HEMOGLOBIN 10.6 g/dL (12.0-18.0); MCH 38.4 (27-36); MCHC 34.1 g/dl (30-36); MCV 112.6 fl (81-99); PLATELET COUNT 86 K/uL (140-440); RBC 2.75 M/ul (4.3-5.7); RDW 15.1 (10.5-15.0)
[2024-07-11 05:52] LABS: ALBUMIN 2.4 g/dL (3.4-5.0); ALBUMIN/GLOBULIN RATIO 0.73 (1.1-2.4); ANION GAP 10.5 (7-21); BILIRUBIN, TOTAL 3.5 ng/dL (0.2-1.0); BUN/CREATININE RATIO 5.26 (6.0-28.6); CALCIUM 8.3 mg/dL (8.5-10.1); CREATININE, SERUM 0.57 mg/dL (0.55-1.02); MAGNESIUM 1.3 mg/dL (1.8-2.4); POTASSIUM 3.5 mmol/L (3.5-5.1); PROTEIN, TOTAL 5.7 g/dL (6.4-8.2)
[2024-07-11 05:56] LABS: LYMPHOCYTES, MANUAL DIFF 12; MONOCYTES, MANUAL DIFF 26; NEUTROPHILS, MANUAL DIFF 62
[2024-07-11] MEDS ORDERED: MAGNESIUM SULFATE 2 GM/50 ML BAG IV SCH (07:45)
[2024-07-11] MEDS ORDERED: bisacodyL 10 MG SUPP PR ONE (12:30)
[2024-07-11] MEDS ORDERED: POLYETHYLENE GLYCOL 3350 1 PACKET PO SCH (12:44)
[2024-07-11 13:16] LABS: ANION GAP 9.6 (7-21); BUN/CREATININE RATIO 4.61 (6.0-28.6); CALCIUM 8.1 mg/dL (8.5-10.1); CREATININE, SERUM 0.65 mg/dL (0.55-1.02); MAGNESIUM 2.3 mg/dL (1.8-2.4); POTASSIUM 2.6 mmol/L (3.5-5.1)
[2024-07-11] MEDS ORDERED: SODIUM CHLORIDE 0.9% 1,000 ML IV SCH ×2 (14:15)
[2024-07-11] MEDS ORDERED: POTASSIUM CHLORIDE 40 MEQ,LIDOCAINE HCL 1% 40 MG in DEXTROSE 5% 250 ML IV ONE ×2 (14:15→18:45)
[2024-07-11 18:29] LABS: ANION GAP 10.9 (7-21); BUN/CREATININE RATIO 5.76 (6.0-28.6); CREATININE, SERUM 0.52 mg/dL (0.55-1.02); POTASSIUM 2.9 mmol/L (3.5-5.1)
[2024-07-11] MEDS ORDERED: IBUPROFEN 600 MG TAB PO PRN (18:30)
[2024-07-11] MEDS ORDERED: POTASSIUM CHLORIDE 10 MEQ/100 ML BAG IV SCH (20:00)
--- NOTE | 2024-07-11 21:32 | EKG ---
[facility] [address] [place] [address] Signed Normal sinus rhythm Nonspecific T wave abnormality Abnormal ECG When compared with ECG of 08-JUL-2024 14:01, No significant change was found Confirmed by Esther Mcdonough MD () on 07/11/2024 9:31:57 PM Electronically Signed By: ESTHER MCDONOUGH MD [id number] PATIENT NAME: BRIANA CAMPA Electrocardiogram DATE OF : 68 PHYSICIAN: ESTHER MCDONOUGH MD REPORT #: [id number] REPORT IS CONFIDENTIAL AND NOT TO BE RELEASED WITHOUT AUTHORIZATION
[2024-07-12] VITALS (9 sets, daily range): BP systolic 91–104; BP diastolic 49–71
[2024-07-12 05:44] LABS: HEMATOCRIT 31.4 % (35.0-50.0); HEMOGLOBIN 10.7 g/dL (12.0-18.0); MCV 111.6 fl (81-99); PLATELET COUNT 120 K/uL (140-440); RBC 2.81 M/ul (4.3-5.7); RDW 15.7 (10.5-15.0)
[2024-07-12 06:04] LABS: ALBUMIN 2.4 g/dL (3.4-5.0); ALBUMIN/GLOBULIN RATIO 0.71 (1.1-2.4); ANION GAP 13.4 (7-21); BILIRUBIN, TOTAL 2.7 ng/dL (0.2-1.0); BUN/CREATININE RATIO 6.38 (6.0-28.6); CALCIUM 7.9 mg/dL (8.5-10.1); CREATININE, SERUM 0.47 mg/dL (0.55-1.02); MAGNESIUM 1.9 mg/dL (1.8-2.4); POTASSIUM 3.4 mmol/L (3.5-5.1); PROTEIN, TOTAL 5.8 g/dL (6.4-8.2)
[2024-07-12 06:13] LABS: BANDS, MANUAL DIFF 13; BASOPHILS, MANUAL DIFF 1; EOSINOPHILS, MANUAL DIFF 1; LYMPHOCYTES, MANUAL DIFF 35; MONOCYTES, MANUAL DIFF 9; NEUTROPHILS, MANUAL DIFF 41
[2024-07-12] MEDS ORDERED: POTASSIUM CHLORIDE 10 MEQ TABCR PO ONE (08:00)
[2024-07-12] MEDS ORDERED: POLYETHYLENE GLYCOL 3350 1 PACKET PO SCH (12:00)
[2024-07-13] MEDS ORDERED: OXYCODONE HCL 5 MG TAB PO PRN (00:45)
[2024-07-13] MEDS ORDERED: OXYCODONE HCL 5 MG TAB PO ONE (00:45)
[2024-07-13 05:05] VITALS: BP 110/72
[2024-07-13 05:29] LABS: BASOPHILS 0.6 % (0-2); EOSINOPHILS 1.9 % (0-6); HEMATOCRIT 31.2 % (35.0-50.0); HEMOGLOBIN 10.5 g/dL (12.0-18.0); LYMPHOCYTES 20.4 % (24-44); MCH 37.6 (27-36); MCHC 33.6 g/dl (30-36); MCV 111.7 fl (81-99); NEUTROPHILS 48.1 % (39-80); PLATELET COUNT 161 K/uL (140-440); RDW 15.2 (10.5-15.0)
[2024-07-13 05:43] VITALS: BP 110/72
[2024-07-13 05:45] LABS: ALBUMIN 2.3 g/dL (3.4-5.0); ALBUMIN/GLOBULIN RATIO 0.68 (1.1-2.4); ANION GAP 13.9 (7-21); BILIRUBIN, TOTAL 1.8 ng/dL (0.2-1.0); BUN/CREATININE RATIO 7.54 (6.0-28.6); CALCIUM 8.3 mg/dL (8.5-10.1); CREATININE, SERUM 0.53 mg/dL (0.55-1.02); MAGNESIUM 1.7 mg/dL (1.8-2.4); POTASSIUM 3.9 mmol/L (3.5-5.1); PROTEIN, TOTAL 5.7 g/dL (6.4-8.2)
[2024-07-13] MEDS ORDERED: MAGNESIUM CHLORIDE 64 MG TABCR PO ONE (07:45)
[2024-07-13 09:49] VITALS: BP 100/64
[2024-07-13] MEDS ORDERED: MAGNESIUM CHLORIDE 64 MG TABCR ONE (10:15)
[2024-07-13] MEDS ORDERED: FUROSEMIDE 20 MG TAB PO SCH (10:17)
[2024-07-13 10:31] LABS: BILIRUBIN, URINE POSITIVE (negative); BLOOD/HGB, URINE LARGE (Negative); KETONE, URINE TRACE (Negative); LEUK ESTERASE, URINE MODERATE (negative); NITRITE, URINE POSITIVE (negative)
[2024-07-13 10:35] LABS: WHITE BLOOD CELLS, URINE >50 /HPF (0-5)
[2024-07-13 10:36] LABS: BACTERIA, URINE 3+ /hpf (negative); CASTS, URINE NONE SEEN \\lpf; COLLECTION TYPE, URINE CLEAN CATCH; CRYSTALS, URINE NONE SEEN (0-1+); EPITHELIAL CELLS, URINE SQUAMOUS 3+ /lpf (0-1+); REFLEX CULTURE, URINE No (No)
[2024-07-13 11:33] VITALS: BP 100/64
[2024-07-13] MEDS ORDERED: CEFDINIR 300 MG CAP PO SCH (11:43)
[2024-07-13] MEDS ORDERED: CEFDINIR300 MG PO (12:28)
[2024-07-13] MEDS ORDERED: OXYCODONE HCL5 MG PO (12:28)
[2024-07-13] MEDS ORDERED: STIMULANT LAXA1 EACH PO (12:29)
[2024-07-13] MEDS ORDERED: VITAMIN B-1100 MG PO (12:29)
[2024-07-13] MEDS ORDERED: FUROSEMIDE20 MG PO (12:29)
[2024-07-13] MEDS ORDERED: MAG-TAB SR84 MG PO (12:30)
[2024-07-13] MEDS ORDERED: POTASSIUM CHLO20 ME1 PO (12:30)
[2024-07-13 13:37] VITALS: BP 98/79
[2024-07-13 14:41] VITALS: BP 98/79
== END 2024-07-13 14:38 | disposition home or self-care (01) | DRG 439 ==
LOC: ED 07:19 → CCU 13:10 → MS 07-09 11:19
PROVIDERS: Emergency Medicine; Family Medicine; ADMIT Student in an Organized Health Care Education/Training Program; ATTEND Student in an Organized Health Care Education/Training Program
DX: K85.20 Alcohol induced acute pancreatitis without necrosis or infection (principal); E87.1 Hypo-osmolality and hyponatremia; E87.29 Other acidosis; F10.139 Alcohol abuse with withdrawal, unspecified; N39.0 Urinary tract infection, site not specified; R18.8 Other ascites; K56.7 Ileus, unspecified; R64 Cachexia; K59.00 Constipation, unspecified; D69.6 Thrombocytopenia, unspecified; R74.01 Elevation of levels of liver transaminase levels; E80.6 Other disorders of bilirubin metabolism; G40.909 Epilepsy, unspecified, not intractable, without status epilepticus; G62.9 Polyneuropathy, unspecified; E87.6 Hypokalemia; E83.42 Hypomagnesemia; K70.30 Alcoholic cirrhosis of liver without ascites; F17.210 Nicotine dependence, cigarettes, uncomplicated; E86.0 Dehydration; Z98.51 Tubal ligation status; Z98.890 Other specified postprocedural states; Z79.899 Other long term (current) drug therapy; Z90.49 Acquired absence of other specified parts of digestive tract; Z68.21 Body mass index [BMI] 21.0-21.9, adult
CPT/HCPCS: 36415; 74018; 74019; 74177; 76705; 80048; 80053; 80307; 81001; 82140; 83605; 83690; 83735; 85025; 85060; 85610; 93005; 93010; 97110; 97116; 97161; 97165; 97530; A9270; G0480; J1885; J1953; J2212; J2270; J2405; J2470; J3411; J3475; J3480; J3490; J7030; J7060; J7121; Q9967